=== PATIENT | male | born 1970 | race Caucasian/White ===

== ENCOUNTER 2021-01-22 22:59 | Observation (INO) ==
[2021-01-23] MEDS ORDERED: Gabapentin 300 MG CAPSULE PO ONE (00:23)
[2021-01-23] MEDS ORDERED: *HR* HYDROmorphone (PF) 1 MG/ML SYRINGE IVP ONE ×3 (00:23→04:25)
[2021-01-23] MEDS ORDERED: methylPREDNISolone 125 MG/2 ML VIAL IVP ONE (00:24)
[2021-01-23] MEDS ORDERED: diazePAM 10 MG/2 ML SYRINGE IVP ONE (01:46)
[2021-01-23 02:39] LABS: Bilirubin,Urine Negative (Negative); Blood,Urine Negative (Negative); Clarity,Urine Clear (Clear); Color,Urine Light-Yellow (Yellow); Glucose,Urine (UA) Normal (Normal); Ketones,Urine Negative (Negative); Leukocyte Esterase,Urine Negative (Negative); Nitrite,Urine Negative (Negative); Protein,Urine Trace mg/dL (Neg-Trace); Specific Gravity,Urine 1.029 (1.010-1.025); Urobilinogen,Urine Normal (Normal)
[2021-01-23 03:21] LABS: Basophils % 0.4 %; Eosinophils # 0.1 K/mcL (0.0-0.6); Eosinophils % 0.6 %; Hematocrit 46.3 % (37.5-50.1); Hemoglobin 15.8 g/dL (12.9-16.9); Immature Granulocytes % 1.1 % (0-4); Lymphocytes % 10.7 %; Mean Corpuscular HGB Conc 34.1 g/dL (31.6-35.5); Mean Corpuscular Hemoglobin 30.4 pg (28.0-33.3); Mean Platelet Volume 10.9 fL (9.4-12.4); Monocytes # 0.3 K/mcL (0.0-1.3); Monocytes % 3.3 %; Neutrophils # 7.6 K/mcL (1.6-8.9); Platelet Count 335 K/mcL (140-400); Red Cell Distribution Width 11.9 % (11.5-14.5); Segmented Neutrophils % 83.9 %; White Blood Count 9.1 K/mcL (4.3-11.1)
[2021-01-23 03:38] LABS: BUN/Creatinine Ratio 21 (6-26); Blood Urea Nitrogen 25 mg/dL (6-20); Calcium 9.7 mg/dL (8.6-10.3); Carbon Dioxide 26 mEq/L (23-29); Chloride 104 mEq/L (98-107); Glucose 113 mg/dL (70-105); Osmolality,Calculated 291 (280-300); Potassium 4.3 mEq/L (3.5-5.1); Sodium 138 mEq/L (136-145); eGFR For African Americans > 60 (> 60); eGFR For Non-African Americans > 60 (> 60)
[2021-01-23] MEDS ORDERED: Naloxone 0.4 MG/ML INJ IVP PRN (06:01)
[2021-01-23] MEDS: *HR* HYDROmorphone 2 MG/ML SYRINGE IVP PRN ×4 (06:22→18:38)
[2021-01-23] MEDS ORDERED: Ketorolac 30 MG/ML VIAL IVP ONE (07:41)
[2021-01-23] MEDS: Gabapentin 300 MG CAPSULE PO SCH ×3 (08:35→20:16)
[2021-01-23] MEDS ORDERED: *HR* OxyCODONE Immed Rel 5 MG TABLET PO PRN (12:47)
[2021-01-23] MEDS: Ketorolac 30 MG/ML VIAL IM SCH (18:07)
[2021-01-23] MEDS: *HR* OxyCODONE Immed Rel 5 MG TABLET PO PRN (21:47)
[2021-01-24] MEDS: Ketorolac 30 MG/ML VIAL IM SCH ×2 (00:06→05:47)
[2021-01-24] MEDS: *HR* HYDROmorphone 2 MG/ML SYRINGE IVP PRN (00:48)
[2021-01-24] MEDS ORDERED: *HR* Enoxaparin 40 MG/0.4 ML SYRINGE SQ SCH (06:00)
[2021-01-24 06:02] LABS: Basophils # 0.1 K/mcL (0.0-0.2); Basophils % 0.5 %; Eosinophils # 0.1 K/mcL (0.0-0.6); Eosinophils % 0.4 %; Hematocrit 42.4 % (37.5-50.1); Hemoglobin 14.4 g/dL (12.9-16.9); Immature Granulocytes % 0.7 % (0-4); Lymphocytes # 2.2 K/mcL (0.6-4.6); Lymphocytes % 16.1 %; Mean Corpuscular Volume 91.4 fL (83.0-100.0); Mean Platelet Volume 11.1 fL (9.4-12.4); Monocytes # 1.1 K/mcL (0.0-1.3); Neutrophils # 10.1 K/mcL (1.6-8.9); Platelet Count 302 K/mcL (140-400); Red Blood Count 4.64 M/mcL (4.19-5.50); Red Cell Distribution Width 12.3 % (11.5-14.5); Segmented Neutrophils % 74.3 %; White Blood Count 13.5 K/mcL (4.3-11.1)
[2021-01-24 06:23] LABS: BUN/Creatinine Ratio 24 (6-26); Blood Urea Nitrogen 23 mg/dL (6-20); Calcium 8.9 mg/dL (8.6-10.3); Carbon Dioxide 23 mEq/L (23-29); Chloride 109 mEq/L (98-107); Glucose 154 mg/dL (70-105); Osmolality,Calculated 295 (280-300); Potassium 4.3 mEq/L (3.5-5.1); Sodium 139 mEq/L (136-145); eGFR For African Americans > 60 (> 60); eGFR For Non-African Americans > 60 (> 60)
[2021-01-24 06:41] VITALS: BP 112/74
[2021-01-24] MEDS: Gabapentin 300 MG CAPSULE PO SCH (07:54)
[2021-01-24] MEDS ORDERED: predniSONE 20 MG TABLET PO SCH (09:00)
[2021-01-24] MEDS: *HR* OxyCODONE Immed Rel 5 MG TABLET PO PRN (09:17)
== END 2021-01-24 11:56 | disposition home or self-care (01) ==
LOC: EMEROOARM 22:59 → 3BNU 22:59 → SUATTDRO 01-23 04:47 → 3BNU 01-23 05:40
PROVIDERS: ADMIT Internal Medicine; ATTEND Internal Medicine